=== PATIENT | female | born 1960 | race African-American/Black ===

== ENCOUNTER 2023-09-23 21:00 | Inpatient (IN) | payer OTHER ==
[2023-09-23 21:42] VITALS: BMI 22.4
[2023-09-24] MEDS ORDERED: guaiFENesin 600 MG TABLET.ER (FP) PO PRN (01:07)
[2023-09-24] MEDS ORDERED: ACETAMINOPHEN 325 MG TABLET (FP) PO PRN (01:07)
[2023-09-24] MEDS ORDERED: NALOXONE HCL 0.4 MG/ML VIAL IM PRN (01:07)
[2023-09-24] MEDS ORDERED: NICOTINE POLACRILEX 2 MG LOZENGE BC PRN (01:07)
[2023-09-24] MEDS ORDERED: BENZONATATE 200 MG CAPSULE PO PRN (01:07)
[2023-09-24] MEDS ORDERED: NALOXONE HCL (KLOXXADO) 8 MG SPRAY NS PRN (01:07)
[2023-09-24] MEDS ORDERED: IBUPROFEN 400 MG TABLET (FP) PO PRN (01:07)
[2023-09-24] MEDS ORDERED: BENZOCAINE/MENTHOL (CHLORASEPTIC ) LOZENGE MM PRN (01:07)
[2023-09-24] MEDS: metFORMIN HCL 500 MG TABLET (FP) PO SCH (07:00)
[2023-09-24] MEDS ORDERED: HALOPERIDOL 5 MG TABLET PO PRN (08:31)
[2023-09-24] MEDS: DIVALPROEX SODIUM 500 MG TABLET E.C. PO SCH (09:24)
[2023-09-24] MEDS: PRENATAL VITAMINS W/ FOLIC ACID TABLET (FP) PO SCH (09:24)
[2023-09-24] MEDS: NICOTINE 14 MG/24 HOURS TOPICAL PATCH TD SCH (09:25)
[2023-09-24] MEDS: amLODIPine BESYLATE 10 MG TABLET (FP) PO SCH (09:25)
[2023-09-24] MEDS: IBUPROFEN 600 MG TABLET (FP) PO PRN (09:28)
[2023-09-24] MEDS ORDERED: TUBERCULIN PPD 5 TU/0.1ML VIAL ID ONE (11:16)
[2023-09-24] MEDS: TUBERCULIN PPD 5 TU/0.1ML SYRINGE (IN PATIENT USE ONLY) ID ONE (12:05)
[2023-09-24 14:01] LABS: EPI CELLS 22 /uL (0-25.1); HYALINE CASTS 1 /uL (0-3.1); PH,URINE 5.5 (5.0-8.0); URINE APPEARANCE CLEAR; URINE BACTERIA 90 /uL (0-1359); URINE BILIRUBIN NEGATIVE (NEGATIVE); URINE COLOR YELLOW; URINE GLUCOSE (UA) NEGATIVE (NEGATIVE); URINE KETONE NEGATIVE (NEGATIVE); URINE LEUK ESTERASE 1+ (NEGATIVE); URINE NITRITE NEGATIVE (NEGATIVE); URINE PROTEIN NEGATIVE (NEGATIVE); URINE RBC 9 /uL (0-23.9); URINE UROBILINOGEN 0.2 mg/dL (0.2-1.0); URINE WBC 77 /uL (0-25.8)
[2023-09-24 14:06] LABS: HEMATOCRIT 38.2 % (32.4-45.2); HEMOGLOBIN 12.9 GM/dL (10.7-15.3); MCH 31.5 pg (25.7-33.7); MCHC 33.6 g/dl (32.0-36.0); MEAN CELL VOLUME 93.5 fl (80-96); MEAN PLT VOLUME 7.4 fl (7.5-11.1); PLATELET COUNT 235 10^3/uL (134-434); RBC 4.09 M/mm3 (3.60-5.2); RDW 12.8 % (11.6-15.6); WHITE BLOOD COUNT 7.3 K/mm3 (4.0-10.0)
[2023-09-24 14:26] LABS: CHLORIDE 108 mmol/L (98-107); POTASSIUM 3.9 mmol/L (3.5-5.1); SODIUM 139 mmol/L (136-145)
[2023-09-24 14:29] LABS: CALCIUM 8.6 mg/dL (8.5-10.1); GLUCOSE,RANDOM 286 mg/dL (74-106)
[2023-09-24 14:30] LABS: ALBUMIN 3.4 g/dl (3.4-5.0); ANION GAP 8 mmol/L (4-13); BLOOD UREA NITROGEN 18.1 mg/dL (7-18); CO2 24 mmol/L (21-32); SGPT/ALT 19 U/L (13-61)
[2023-09-24 14:31] LABS: CREATININE 0.9 mg/dL (0.55-1.3)
[2023-09-24 14:33] LABS: SGOT/AST 11 U/L (15-37)
[2023-09-24 14:34] LABS: TOT PROT 6.5 g/dl (6.4-8.2)
[2023-09-24 14:35] LABS: BILIRUBIN,TOTAL 0.3 mg/dL (0.2-1)
[2023-09-24 14:36] LABS: ALK PHOS 87 U/L (45-117)
[2023-09-24 16:54] LABS: SYPHILIS W/ RPR CONF REACTIVE (NONREACTIVE)
[2023-09-24] MEDS: ATORVASTATIN CA 40 MG TABLET (FP) PO SCH (21:44)
[2023-09-24] MEDS: SULFAMETHOXAZOLE/TRIMETHOPRIM 800MG/160MG D.S. TABLET PO SCH (21:44)
[2023-09-24] MEDS: MELATONIN 5 MG TABLETS PO SCH (21:45)
[2023-09-24] MEDS: BENZTROPINE MESYLATE 1 MG TABLET PO SCH (21:45)
[2023-09-24] MEDS: THIAMINE HCL 100 MG TABLET (FP) PO SCH (21:45)
[2023-09-24] MEDS: HALOPERIDOL 5 MG TABLET PO SCH (21:45)
[2023-09-25] MEDS: MAG HYDROX/AL HYDROX/SIMETH 30 ML UNIT-DOSE CUP PO PRN (12:08)
[2023-09-25 12:44] LABS: HIV INTERPRETATION NEGATIVE (NEGATIVE)
[2023-09-25] MEDS: POLYETHYLENE GLYCOL (HEALTHYLAX) 3350 17 GM PACKET PO PRN (14:19)
[2023-09-26] MEDS: MAGNESIUM OXIDE 400 MG TABLET (FP) PO SCH (21:27)
[2023-09-28] MEDS: MAGNESIUM HYDROX 2400MG/30ML ORAL SUSPENSION 30 ML CUP PO PRN (14:13)
[2023-10-01] MEDS: LOPERAMIDE HCL 2 MG CAPSULE PO PRN (09:31)
[2023-10-01] MEDS: NALTREXONE HCL 50 MG TABLET PO ONE (13:35)
[2023-10-02] MEDS: NALTREXONE HCL 50 MG TABLET PO SCH (09:58)
[2023-10-04] MEDS: SULFAMETHOXAZOLE/TRIMETHOPRIM 800MG/160MG D.S. TABLET PO SCH (21:29)
[2023-10-04] MEDS: SIMETHICONE 80 MG TAB.CHEW (FP) PO PRN (22:39)
[2023-10-05] MEDS: INSULIN ASPART SLIDING SCALE (NOVOLOG) 1 VIAL SQ SCH (17:42)
[2023-10-07] MEDS ORDERED: INSULIN (NOVOLOG) ASPART 100 UNITS/ML 10ML VIAL ONE ×2 (08:05→12:57)
[2023-10-08] MEDS ORDERED: INSULIN (NOVOLOG) ASPART 100 UNITS/ML 10ML VIAL ONE ×2 (12:12→16:20)
[2023-10-09] MEDS ORDERED: INSULIN (NOVOLOG) ASPART 100 UNITS/ML 10ML VIAL ONE ×2 (06:53→16:28)
[2023-10-10] MEDS ORDERED: INSULIN (NOVOLOG) ASPART 100 UNITS/ML 10ML VIAL ONE ×3 (07:07→16:41)
[2023-10-10] MEDS ORDERED: BENZONATATE 200 MG CAPSULE PO PRN (14:55)
[2023-10-10] MEDS ORDERED: hydrOXYzine PAMOATE 25 MG CAPSULE (FP) PO PRN (14:55)
[2023-10-10] MEDS ORDERED: IBUPROFEN 600 MG TABLET (FP) PO PRN (14:55)
[2023-10-10] MEDS ORDERED: NALOXONE HCL 0.4 MG/ML VIAL IVPUSH PRN (14:55)
[2023-10-10] MEDS ORDERED: POLYETHYLENE GLYCOL (HEALTHYLAX) 3350 17 GM PACKET PO PRN (14:55)
[2023-10-10] MEDS ORDERED: guaiFENesin 600 MG TABLET.ER (FP) PO PRN (14:55)
[2023-10-10] MEDS ORDERED: LOPERAMIDE HCL 2 MG CAPSULE PO PRN (14:55)
[2023-10-10] MEDS ORDERED: NALOXONE HCL (KLOXXADO) 8 MG SPRAY NS PRN (14:55)
[2023-10-10] MEDS ORDERED: MAG HYDROX/AL HYDROX/SIMETH 30 ML UNIT-DOSE CUP PO PRN (14:55)
[2023-10-10] MEDS ORDERED: BENZOCAINE/MENTHOL (CHLORASEPTIC ) LOZENGE MM PRN (14:55)
[2023-10-10] MEDS ORDERED: IBUPROFEN 400 MG TABLET (FP) PO PRN (14:55)
[2023-10-10] MEDS ORDERED: METHOCARBAMOL 500 MG TABLET PO PRN (14:55)
[2023-10-10] MEDS ORDERED: MAGNESIUM HYDROX 2400MG/30ML ORAL SUSPENSION 30 ML CUP PO PRN (14:55)
[2023-10-10] MEDS ORDERED: ACETAMINOPHEN 325 MG TABLET (FP) PO PRN (14:55)
[2023-10-10] MEDS ORDERED: MELATONIN 5 MG TABLETS PO SCH (22:00)
[2023-10-10] MEDS ORDERED: THIAMINE HCL 100 MG TABLET (FP) PO SCH (22:00)
[2023-10-11] MEDS ORDERED: PRENATAL VITAMINS W/ FOLIC ACID TABLET (FP) PO SCH (10:00)
[2023-10-13] MEDS ORDERED: INSULIN (NOVOLOG) ASPART 100 UNITS/ML 10ML VIAL ONE ×3 (07:20→16:29)
[2023-10-14] MEDS ORDERED: INSULIN (NOVOLOG) ASPART 100 UNITS/ML 10ML VIAL ONE (12:11)
[2023-10-15] MEDS ORDERED: INSULIN (NOVOLOG) ASPART 100 UNITS/ML 10ML VIAL ONE (12:03)
[2023-10-16] MEDS ORDERED: INSULIN (NOVOLOG) ASPART 100 UNITS/ML 10ML VIAL ONE ×2 (07:11→11:59)
[2023-10-16 07:15] VITALS: RESP 18
[2023-10-16] MEDS: PANTOPRAZOLE 20 MG TABLET PO SCH (10:52)
[2023-10-16] MEDS: hydrOXYzine PAMOATE 25 MG CAPSULE (FP) PO PRN (21:29)
[2023-10-17] MEDS ORDERED: INSULIN (NOVOLOG) ASPART 100 UNITS/ML 10ML VIAL ONE ×4 (06:53→22:23)
[2023-10-18] MEDS ORDERED: INSULIN (NOVOLOG) ASPART 100 UNITS/ML 10ML VIAL ONE ×2 (06:07→11:58)
[2023-10-20] MEDS ORDERED: INSULIN (NOVOLOG) ASPART 100 UNITS/ML 10ML VIAL ONE ×2 (07:01→12:07)
[2023-10-21] MEDS ORDERED: INSULIN (NOVOLOG) ASPART 100 UNITS/ML 10ML VIAL ONE (06:28)
[2023-10-21 07:16] VITALS: TEMP 97.5
[2023-10-21 09:22] VITALS: BP 119/72; PULSE 91
== END 2023-10-21 09:47 | disposition home or self-care (01) | DRG 772 ==
LOC: YASAS 21:00 → Y5N 09-24 02:00
PROVIDERS: ADMIT Allergy & Immunology; ATTEND Psychiatry & Neurology Pain Medicine
PROC: HZ42ZZZ Group Counseling for Substance Abuse Treatment, Cognitive-Behavioral (ICD-10-PCS; principal; 2023-09-24)
DX: F10.20 Alcohol dependence, uncomplicated (principal); F14.10 Cocaine abuse, uncomplicated; F14.20 Cocaine dependence, uncomplicated; F17.210 Nicotine dependence, cigarettes, uncomplicated; F19.282 Other psychoactive substance dependence with psychoactive substance-induced sleep disorder; F19.24 Other psychoactive substance dependence with psychoactive substance-induced mood disorder; I10 Essential (primary) hypertension; G40.909 Epilepsy, unspecified, not intractable, without status epilepticus; E78.5 Hyperlipidemia, unspecified; E11.9 Type 2 diabetes mellitus without complications; J45.909 Unspecified asthma, uncomplicated; K21.9 Gastro-esophageal reflux disease without esophagitis; M16.11 Unilateral primary osteoarthritis, right hip; N39.0 Urinary tract infection, site not specified; Z62.810 Personal history of physical and sexual abuse in childhood; Z79.84 Long term (current) use of oral hypoglycemic drugs; Z63.8 Other specified problems related to primary support group; Z99.89 Dependence on other enabling machines and devices; Z88.5 Allergy status to narcotic agent
CPT/HCPCS: 0241U-QW; 36415; 80053; 80307; 81003; 82140; 82652; 82962; 83735; 85027; 86593; 86780; 86803; 87086; 87389; 87491; 87529; 87591; 87661; 93005; 93010